=== PATIENT | male | born 1985 | race Two or more races ===

== ENCOUNTER → 2024-06-14 | Outpatient (CLI) | payer OTHER ==
[~2024-06-14] MED LIST: AZIT250 PO; CLIN150 PO; Cleocin HCl150 MG PO; HYDACE5 PO; HYDR1TAB94 PO; SULTRIDS PO; TRAM50 PO; Zofran Odt4 MG SL
== END | disposition home or self-care (01) ==
LOC: LAB SHORT 09:56 → LAB 09:56
DX: R35.0 Frequency of micturition (principal)
CPT/HCPCS: 87086